=== PATIENT | male | born 1940 | race Caucasian/White ===

== ENCOUNTER → 2018-11-02 | Outpatient (CLI) | payer MEDICARE | END | disposition home or self-care (01) | LOC: PCVCCLINIC 15:06 | PROVIDERS: ATTEND Internal Medicine Cardiovascular Disease | DX: I48.91 Unspecified atrial fibrillation (principal); R60.9 Edema, unspecified; R06.09 Other forms of dyspnea; J44.9 Chronic obstructive pulmonary disease, unspecified; I12.9 Hypertensive chronic kidney disease with stage 1 through stage 4 chronic kidney disease, or unspecified chronic kidney disease; N18.3 Chronic kidney disease, stage 3 (moderate); Z79.01 Long term (current) use of anticoagulants; Z87.891 Personal history of nicotine dependence | CPT/HCPCS: 93005; G0463 ==

== ENCOUNTER → 2019-01-01 | Outpatient (CLI) | payer MEDICARE, BC ==
--- NOTE | 2019-01-01 14:10 | PCVCIMAG ---
APPROVED REPORT Study performed: 01/01/2019 13:12:53 EXAM: Comprehensive 2D, Doppler, and color-flow Echocardiogram Patient Location: Echo lab Status: routine BSA: 2.17 HR: 87 bpmBP: 130/80 mmHg Rhythm: Atrial Fibrillation Other Information Study Quality: Adequate Risk Factors: Cardiac Risk Factors: HTN, Hyperlipidemia, DM Indications Atrial Fibrillation Dyspnea COPD, Edema 2D Dimensions IVSd: 9.85 (7-11mm)LVOT Diam: 21.09 (18-24mm) LVDd: 44.54 mm PWd: 9.91 (7-11mm)Ascending Ao: 38.04 (22-36mm) LVDs: 43.40 (25-40mm) Left Atrium: 52.12 (27-40mm) Aortic Root: 30.37 mm LV Single Plane 4CH: 44.92 % LV Single Plane 2CH: 51.90 % Biplane EF: 50.4 % Volumes Left Atrial Volume (Systole) Single Plane 4CH: 82.81 mLSingle Plane 2CH: 93.39 mL LA ESV Index: 47.00 mL/m2 Aortic Valve AoV Peak Bennett.: 1.94 m/s AO Peak Gr.: 16.47 mmHgLVOT Max P.55 mmHg LVOT Max V: 1.04 m/s [place] Vmax: 1.87 cm2 AI Vmax: 4.20 m/s AI [place]: 3.50 m/s2 AI PHT: 382.50 ms Mitral Valve E/A Ratio: 0.8 MV E Max Bennett.: 1.04 m/s MV A Bennett.: 1.25 m/s Pulmonary Valve PV Peak Gr.: 2.62 mmHg Tricuspid Valve TR Peak Bennett.: 2.85 m/s TR Peak Gr.: 32.56 mmHg Left Ventricle The left ventricle is normal size. There is global hypokinesis of the left ventricle. There is normal left ventricular wall thickness. Left ventricular systolic function is mild to moderately decreased. LVEF is 40-45%. This study is not technically sufficient to allow evaluation of the LV diastolic function due to atrial fibrillation. Right Ventricle The right ventricle is normal size. The right ventricular systolic function is normal. Atria Left atrium is moderately dilated. Right atrium is dilated. Aortic Valve The aortic valve is normal in structure. Mild aortic regurgitation. There is no aortic valvular stenosis. Mitral Valve The mitral valve is normal in structure. Mild to moderate mitral regurgitation. No evidence of mitral valve stenosis. Tricuspid Valve The tricuspid valve is normal in structure. Moderate tricuspid regurgitation. Pulmonary artery pressure is 40mmHg. Pulmonic Valve The pulmonary valve is normal in structure. There is no pulmonic valvular regurgitation. Great Vessels The aortic root is normal in size. IVC is normal in size and collapses >50% with inspiration. Pericardium There is no pericardial effusion. <Conclusion> The left ventricle is normal size. There is normal left ventricular wall thickness. Left ventricular systolic function is mild to moderately decreased. LVEF is 40-45%. The right ventricle is normal size. Left atrium is moderately dilated. Right atrium is dilated. Mild aortic regurgitation. Mild to moderate mitral regurgitation. Moderate tricuspid regurgitation. Pulmonary artery pressure is 40mmHg.
== END | disposition home or self-care (01) ==
LOC: PCVCIMAG 13:19
PROVIDERS: ATTEND Internal Medicine Cardiovascular Disease
DX: I08.3 Combined rheumatic disorders of mitral, aortic and tricuspid valves (principal); I48.2 Chronic atrial fibrillation; I42.9 Cardiomyopathy, unspecified; I10 Essential (primary) hypertension; R60.9 Edema, unspecified; J44.9 Chronic obstructive pulmonary disease, unspecified; Z79.899 Other long term (current) drug therapy
CPT/HCPCS: 93005; 93306; G0463